=== PATIENT | female | born 1940 | race Hispanic/Latino ===

== ENCOUNTER 2017-12-30 11:27 | Emergency (ER) | payer OTHER ==
[2017-12-30 12:28] LABS: Absolute Lymphocytes (CBC) 1.5 K/uL (0.7-4.9); Absolute Monocytes 0.5 K/uL (0.1-1.3); Absolute Neutrophil 4.6 K/uL (1.8-8.0); Basophils % 0.4 % (0-1.3); Eosinophils % 0.8 % (0-4.4); Hematocrit 38.6 % (36.0-45.0); MCH 31.4 pg (27.0-35.0); MCV 91.3 fL (80-100); MPV 9.2 fL (7.6-11.3); Monocytes % 7.5 % (3.3-12.3); RBC Red Blood Cell Count 4.23 M/uL (3.86-4.86)
--- NOTE | 2017-12-30 12:32 | RAD REPORT ---
EXAM DESCRIPTION: RAD - Chest Pa And Lat (2 Views) - 12/30/2017 12:23 pm CLINICAL HISTORY: COUGH Chest pain. COMPARISON: No comparisons FINDINGS: The lungs are clear. The heart is upper limit of normal in size. No displaced fractures. IMPRESSION: No acute or concerning finding suspected.
[2017-12-30 12:40] LABS: Potassium 3.9 mmol/L (3.5-5.1)
[2017-12-30 13:10] LABS: Urine Bacteria <20 /HPF (<20); Urine RBC <5 /HPF (NONE SEEN)
[2017-12-30 13:11] LABS: Calcium Oxalate Crystals- Ur MODERATE (NONE SEEN); Urine Amorphous Sediment 4+ /HPF (NONE SEEN); Urine Culture Reflex Order NOT NEEDED; Urine Mucus HEAVY /HPF (NONE SEEN)
[2017-12-30 14:35] LABS: Urine Blood NEGATIVE (NEG); Urine Glucose NEGATIVE (NEG); Urine Protein 1+ (NEG); Urine Specific Gravity >1.030 (1.005-1.030); Urine pH 5.5 (5.0-7.0)
--- NOTE | 2017-12-30 14:36 | RAD REPORT ---
EXAM DESCRIPTION: CT - Stone Protocol - 12/30/2017 2:20 pm CLINICAL HISTORY: Flank pain. Low back pain COMPARISON: Abdomen Pelvis W Contrast dated 01/07/2017 TECHNIQUE: Axial images were obtained without oral or IV contrast. Lack of contrast limits solid org an and vascular assessment. The [id number] spans the entirety of the system partially obscuring uppermost abdomen and lung bases. Coronal reformatted images were obtained and reviewed. All CT scans are performed using dose optimization technique as appropriate and may include automated exposure control or mA/KV adjustment according to patient size. FINDINGS: The lower lung kim are clear. Imaged portions of the liver and spleen show no suspicious findings on non-contrast imaging. The panc reas and adrenal glands are normal. No pathologic lymphadenopathy in the abdomen or pelvis. No urinary tract stones or obstructive uropathy. No bowel obstruction, free air, free fluid or abscess. Appendectomy. A prominent calcified disc bulge is present that L1-2 resulting in moderate central canal stenosis. P rominent degenerative anterolisthesis of 5 mm noted at L4-[address] IMPRESSION: No urinary tract stones or obstructive uropathy. Lumbar degenerative changes are present including central canal stenosis likely present at L1-2. Foll ow-up nonemergent MR imaging could be obtained for better assessment.
--- NOTE | 2017-12-30 14:46 | ER ---
Nurse's Notes [facility] Name: Mariaa Shabazz Age: 77 yrs Sex: Female : 1940 Arrival Date: 12/30/2017 Time: 11:32 Bed 13 Private MD: Ben Decker R Diagnosis: Acute upper respiratory infection, unspecified;Muscle spasm of back Presentation: 12/30 11:43 Presenting complaint: Patient states: lower back aching since today. Pt also reports aa5 cough x 1 week ago. Pt denies urinary symptoms. Transition of care: patient was not received from another setting of care. Onset of symptoms was December 30, 2017. Risk Assessment: Do you want to hurt yourself or someone else? Patient reports no desire to harm self or others. Initial Sepsis Screen: Does the patient meet any 2 criteria? No. Patient's initial sepsis screen is negative. Does the patient have a suspected source of infection? No. Patient's initial sepsis screen is negative. Care prior to arrival: None. 11:43 Method Of Arrival: Ambulatory aa5 11:43 Acuity: LUISA 3 aa5 Triage Assessment: 12:00 General: Appears in no apparent distress. uncomfortable, Behavior is calm, cooperative, hj appropriate for age. Pain: Complains of pain in back. Musculoskeletal: Circulation, motion, and sensation intact. Capillary refill < 3 seconds, Range of motion: intact in all extremities. Historical: - Allergies: 11:45 No Known Allergies; aa5 - PMHx: 11:45 None; aa5 - PSHx: 11:46 back; Appendectomy; aa5 - Immunization history:: Pneumococcal vaccine is up to date, Flu vaccine is up to date. - Social history:: Smoking status: Patient/guardian denies using tobacco. - Ebola Screening: : No symptoms or risks identified at this time. Screenin:48 Abuse screen: Denies threats or abuse. Denies injuries from another. Nutritional hj screening: No deficits noted. Tuberculosis screening: No symptoms or risk factors identified. Fall Risk None identified. Assessment: 11:48 General: Appears in no apparent distress. uncomfortable, Behavior is calm, cooperative, hj appropriate for age. Pain: Pain: Complains of pain in back. Neuro: Level of Consciousness is awake, alert, obeys commands, Oriented to person, place, time, situation, Appropriate for age. Cardiovascular: Capillary refill < 3 seconds Patient's skin is warm and dry. Respiratory: Airway is patent Respiratory effort is even, unlabored, Respiratory pattern is regular, symmetrical. GI: No signs and/or symptoms were reported involving the gastrointestinal system. : No signs and/or symptoms were reported regarding the genitourinary system. EENT: No signs and/or symptoms were reported regarding the EENT system. Derm: No signs and/or symptoms reported regarding the dermatologic system. Musculoskeletal: Reports pain in back. 12:26 Reassessment: returned from Xray; awaiting results and POC;. hj 13:08 Reassessment: Patient and/or family updated on plan of care and expected duration. Pain hj level reassessed. Patient is alert, oriented x 3, equal unlabored respirations, skin warm/dry/pink. awaiting results and POC;. 13:52 Reassessment: provider in room; spoke to family; added CT stone;. hj 13:55 Reassessment: wheeled to CT:. hj Vital Signs: 11:46 BP 170 / 63; Pulse 60; Resp 16 S; Temp 98.2(O); Pulse Ox 99% ; Weight 61.23 kg (R); aa5 Height 5 ft. 1 in. (154.94 cm) (R); Pain 5/10; 12:26 BP 168 / 65; Pulse 65; Resp 18; Pulse Ox 100% on R/A; hj 13:09 BP 134 / 76; Pulse 64; Resp 18; Pulse Ox 98% on R/A; hj 13:57 BP 130 / 76; Pulse 65; Resp 18; Pulse Ox 100% on R/A; hj 14:57 BP 128 / 77; Pulse 64; Resp 18; Pulse Ox 100% on R/A; hj 11:46 Body Mass Index 25.51 (61.23 kg, 154.94 cm) aa5 ED Course: 11:32 Patient arrived in ED. mr 11:32 Ben Decker MD is Private Physician. mr 11:44 Triage completed. aa5 11:44 Arm band placed on. aa5 11:47 Samy Lua RN is Primary Nurse. hj 11:48 Patient has correct armband on for positive identification. Placed in gown. Bed in low hj position. Call light in reach. Side rails up X 1. Adult w/ patient. 11:55 Gene Lopez NP is PHCP. pm1 11:55 Jasiel Lainez MD is Attending Physician. pm1 12:10 Initial lab(s) drawn, by me, sent to lab. Inserted saline lock: 22 gauge in right hj antecubital area, using aseptic technique. Blood collected. 12:22 X-ray completed. Patient tolerated procedure well. Patient moved back from radiology. jb2 12:23 Chest Pa And Lat (2 Views) XRAY In Process Unspecified. EDMS 12:37 Urine Culture Sent. hj 12:37 Urine Microscopic Only Sent. hj 13:02 Flu Sent. hj 13:02 Urine Culture Sent. hj 13:02 Urine Microscopic Only Sent. hj 13:12 Flu Sent. hj 13:[address] vr 14:21 CT Stone Protocol In Process Unspecified. EDMS 14:44 Ben Decker MD is Referral Physician. pm1 14:56 No provider procedures requiring assistance completed. IV discontinued, intact, hj bleeding controlled, No redness/swelling at site. Pressure dressing applied. Administered Medications: No medications were administered Outcome: 14:45 Discharge ordered by MD. pm1 14:57 Discharged to home ambulatory. hj 14:57 Condition: stable 14:57 Discharge instructions given to patient, family, Instructed on discharge instructions, follow up and referral plans. medication usage, Demonstrated understanding of instructions, follow-up care, medications, Prescriptions given X 1. 14:58 Patient left the ED. Addendum: 01/02/2018 17:11 Addendum: Culture Results: Positive urine culture. No further action required. Other: s s No urinary s/s, okay to follow up per Madelyn Zhao NP. Signatures: Dispatcher [employer] EDMD Divine Guevara Jesse jb2 Nga Jiang RN RN aa5 Smirch, Shelby, RN RN ss Davis, Victoria vr Samy Lua RN RN hj Marinas, Patrick, [employer] pm1
--- NOTE | 2017-12-30 14:46 | EDPHYS ---
Physician Documentation [facility] Name: Mariaa Shabazz Age: 77 yrs Sex: Female : 1940 Arrival Date: 12/30/2017 Time: 11:32 Bed 13 Private MD: Ben Decker R ED Physician Jasiel Lainez HPI: 12/30 13:00 This 77 yrs old Female presents to ER via Ambulatory with complaints of Back pm1 Pain. 13:00 The patient presents with pain that is acute. The symptoms are located in the left mid pm1 back and right mid back. Onset: The symptoms/episode began/occurred 1 week(s) ago. The pain does not radiate. Associated signs and symptoms: Pertinent negatives: chest pain, dysuria, fever, hematuria, shortness of breath. Modifying factors: The patient symptoms are alleviated by nothing, the patient symptoms are aggravated by coughing. Severity of symptoms: in the emergency department the symptoms are unchanged. Patient with onset of cough for 1 week. Saw her PCP on Saturday and was diagnosed with URI and given a prescription for cough suppressant. No antibiotics given. Historical: - Allergies: 11:45 No Known Allergies; aa5 - PMHx: 11:45 None; aa5 - PSHx: 11:46 back; Appendectomy; aa5 - Immunization history:: Pneumococcal vaccine is up to date, Flu vaccine is up to date. - Social history:: Smoking status: Patient/guardian denies using tobacco. - Ebola Screening: : No symptoms or risks identified at this time. ROS: 13:00 Constitutional: Negative for fever, chills, and weight loss, Eyes: Negative for injury, pm1 pain, redness, and discharge, ENT: Negative for injury, pain, and discharge, Neck: Negative for injury, pain, and swelling, Cardiovascular: Negative for chest pain, palpitations, and edema. 13:00 Abdomen/GI: Negative for abdominal pain, nausea, vomiting, diarrhea, and constipation, : Negative for injury, bleeding, discharge, and swelling, MS/Extremity: Negative for injury and deformity, Skin: Negative for injury, rash, and discoloration, Neuro: Negative for headache, weakness, numbness, tingling, and seizure. 13:00 Respiratory: Positive for cough, Negative for dyspnea on exertion, shortness of breath, sputum production, wheezing. 18:37 Back: Positive for of the left mid back and right mid back, pain with coughing. pm1 Exam: 13:00 Constitutional: This is a well developed, well nourished patient who is awake, alert, pm1 and in no acute distress. Head/Face: Normocephalic, atraumatic. Eyes: Pupils equal round and reactive to light, extra-ocular motions intact. Lids and lashes normal. Conjunctiva and sclera are non-icteric and not injected. Cornea within normal limits. Periorbital areas with no swelling, redness, or edema. ENT: Nares patent. No nasal discharge, no septal abnormalities noted. Tympanic membranes are normal and external auditory canals are clear. Oropharynx with no redness, swelling, or masses, exudates, or evidence of obstruction, uvula midline. Mucous membranes moist. Neck: Trachea midline, no thyromegaly or masses palpated, and no cervical lymphadenopathy. Supple, full range of motion without nuchal rigidity, or vertebral point tenderness. No Meningismus. Chest/axilla: Normal chest wall appearance and motion. Nontender with no deformity. No lesions are appreciated. Cardiovascular: Regular rate and rhythm with a normal S1 and S2. No gallops, murmurs, or rubs. Normal PMI, no JVD. No pulse deficits. Respiratory: Lungs have equal breath sounds bilaterally, clear to auscultation and percussion. No rales, rhonchi or wheezes noted. No increased work of breathing, no retractions or nasal flaring. Abdomen/GI: Soft, non-tender, with normal bowel sounds. No distension or tympany. No guarding or rebound. No evidence of tenderness throughout. 13:00 Skin: Warm, dry with normal turgor. Normal color with no rashes, no lesions, and no evidence of cellulitis. MS/ Extremity: Pulses equal, no cyanosis. Neurovascular intact. Full, normal range of motion. 13:00 Back: normal spinal alignment noted, muscle spasm, is appreciated in the left mid back and right mid back. 13:00 Neuro: Orientation: is normal, Motor: is normal, moves all fours, Sensation: is normal, no obvious gross deficits. Vital Signs: 11:46 BP 170 / 63; Pulse 60; Resp 16 S; Temp 98.2(O); Pulse Ox 99% ; Weight 61.23 kg (R); aa5 Height 5 ft. 1 in. (154.94 cm) (R); Pain 5/10; 12:26 BP 168 / 65; Pulse 65; Resp 18; Pulse Ox 100% on R/A; hj 13:09 BP 134 / 76; Pulse 64; Resp 18; Pulse Ox 98% on R/A; hj 13:57 BP 130 / 76; Pulse 65; Resp 18; Pulse Ox 100% on R/A; hj 14:57 BP 128 / 77; Pulse 64; Resp 18; Pulse Ox 100% on R/A; hj 11:46 Body Mass Index 25.51 (61.23 kg, 154.94 cm) aa5 MDM: 11:57 Patient medically screened. pm1 13:48 Data reviewed: vital signs. Data interpreted: Pulse oximetry: on room air is 98 %. pm1 Interpretation: normal. 13:48 ED course: Patient presenting to ER with back pain. Urine micro with high amount of pm1 calcium oxalate present, therefore I will order CT stone protocol. 14:44 Counseling: I had a detailed discussion with the patient and/or guardian regarding: the pm1 historical points, exam findings, and any diagnostic results supporting the discharge/admit diagnosis, lab results, radiology results, the need for outpatient follow up, to return to the emergency department if symptoms worsen or persist or if there are any questions or concerns that arise at home. 12/30 12:04 Order name: CBC with Diff; Complete Time: 12:53 pm1 12/30 12:04 Order name: BMP; Complete Time: 12:53 pm1 12/30 12:22 Order name: Urine Microscopic Only; Complete Time: 13:44 hj 12/30 12:22 Order name: Urine Culture 12/30 12:50 Order name: Urine Dipstick--Ancillary (enter results); Complete Time: 14:44 bd 12/30 12:54 Order name: Flu; Complete Time: 13:44 pm1 12/30 12:04 Order name: Chest Pa And Lat (2 Views) XRAY; Complete Time: 12:53 pm1 12/30 12:04 Order name: IV Saline Lock; Complete Time: 12:15 pm1 12/30 12:04 Order name: Urine Dipstick-Ancillary (obtain specimen); Complete Time: 12:22 pm1 12/30 13:48 Order name: CT Stone Protocol; Complete Time: 14:44 pm1 Administered Medications: No medications were administered Disposition: 17:18 Co-signature as Attending Physician, Jasiel Lainez MD. rn Disposition: 12/30/17 14:45 Discharged to Home. Impression: Acute upper respiratory infection, unspecified, Muscle spasm of back. - Condition is Stable. - Discharge Instructions: Back Pain, Adult, Muscle Cramps and Spasms, Upper Respiratory Infection, Adult, Viral Respiratory Infection, Cough, Adult. - Prescriptions for Guaifenesin AC 10- 100 mg/5 mL Oral Liquid - take 10 milliliter by ORAL route every 4 hours As needed; 240 milliliter. - Medication Reconciliation Form, Thank You Letter, Antibiotic Education form. - Follow up: Emergency Department; When: As needed; Reason: Worsening of condition. Follow up: Ben Decker MD; When: 2 - 3 days; Reason: Recheck today's complaints, Continuance of care, Re-evaluation by your physician. - Problem is new. - Symptoms have improved. Signatures: Dispatcher [employer] EDJasiel Gallegos MD MD rn Calderon, Audri RN RN aa5 Samy Lua RN RN hj Gene Lopez, [employer] pm1 Corrections: (The following items were deleted from the chart) 14:58 14:45 12/30/2017 14:45 Discharged to Home. Impression: Acute upper respiratory hj infection, unspecified; Muscle spasm of back. Condition is Stable. Forms are Medication Reconciliation Form, Thank You Letter, Antibiotic Education, Prescription Opioid Use. Follow up: Emergency Department; When: As needed; Reason: Worsening of condition. Follow up: Ben Decker; When: 2 - 3 days; Reason: Recheck today's complaints, Continuance of care, Re-evaluation by your physician. Problem is new. Symptoms have improved. pm1 18:38 13:00 Abdomen/GI: Negative for abdominal pain, nausea, vomiting, diarrhea, and pm1 constipation, Back: Negative for injury and pain, : Negative for injury, bleeding, discharge, and swelling, MS/Extremity: Negative for injury and deformity, Skin: Negative for injury, rash, and discoloration, Neuro: Negative for headache, weakness, numbness, tingling, and seizure, pm1
== END 2017-12-30 14:58 | disposition home or self-care (01) ==
LOC: ER 11:27
DX: J06.9 Acute upper respiratory infection, unspecified (principal)
CPT/HCPCS: 36415; 71046; 74176; 76377; 80048; 81003; 81015; 85025; 87077; 87086; 87088; 87186; 87804; 99284